=== PATIENT | female | born 1995 | race Caucasian/White ===

== ENCOUNTER 2022-06-03 15:59 | Emergency (ER) | payer MEDICAID, OTHER ==
[~2022-06-03] VITALS: Ht 154.9 cm; Wt 88.9 kg
[2022-06-03 16:26] VITALS: BP 95/60
--- NOTE | 2022-06-03 16:39 | NUR ---
PT AMBULATED TO BED 05 WITH ASSISTANCE.
[2022-06-03] MEDS ORDERED: NACL 0.9% 1,000 ML IV ONE (16:55)
--- NOTE | 2022-06-03 17:16 | NUR ---
Blood work drawn and IV started. Walked blood to lab.
--- NOTE | 2022-06-03 17:26 | NUR ---
26 y/o female bib self with c/o generalized body weakness, nausea, vomiting and rash on right breast x today AM. Patient is . Patient denies being around anyone who is sick. Upon inspection patient's right breast can't visualize any rash. Skin is clean and intact. No swelling or redness. Medical History: Denies NKDA
--- NOTE | 2022-06-03 17:40 | NUR ---
Dr. Walters evaluating patient at bedside.
[2022-06-03] MEDS ORDERED: CLINDAMYCIN 300 MG in DEXTROSE 5% 50 ML IV ONE (17:45)
[2022-06-03] MEDS ORDERED: NACL 0.9% 1,000 ML IV SCH (17:45)
--- NOTE | 2022-06-03 17:45 | NUR ---
Female Sampler Pickup accompanied female patient for Breast Exam.
[2022-06-03 18:03] LABS: BASOPHILS % (AUTO) 0.2 % (0.0-2.0); EOSINOPHILS % (AUTO) 0.2 % (0.0-4.0); HEMATOCRIT 41.4 % (36-48); HEMOGLOBIN 13.8 g/dL (12.0-16.0); LYMPHOCYTES # (AUTO) 1.6 K/uL (2.5-16.5); LYMPHOCYTES % (AUTO) 10.3 % (20.5-51.1); MEAN CORPUSCULAR HEMOGLOBIN 28 pg (27-31); MEAN CORPUSCULAR HGB CONC 33 g/dL (33-37); MEAN CORPUSCULAR VOLUME 83.6 fL (80-94); MONOCYTES # (AUTO) 0.6 K/uL (0.8-1.0); MONOCYTES % (AUTO) 3.9 % (1.7-9.3); NEUTROPHILS # (AUTO) 13.4 K/uL (1.8-7.7); NEUTROPHILS % (AUTO) 85.4 % (42.2-75.2); PLATELET COUNT (AUTO) 302 K/uL (140-450); RED BLOOD CELL COUNT(AUTO) 4.95 MIL/uL (4.20-5.40); RED CELL DISTRIBUTION WIDTH 14.1 % (11.6-13.7); WHITE BLOOD COUNT (AUTO) 15.7 K/uL (4.8-10.8)
[2022-06-03] MEDS ORDERED: CLINDAMYCIN 600 MG in DEXTROSE 5% 50 ML IV SCH (18:05)
--- NOTE | 2022-06-03 18:05 | NUR ---
Lab at bedside.
--- NOTE | 2022-06-03 18:24 | NUR ---
X- Ray at bedside.
[2022-06-03 18:27] LABS: ALBUMIN 3.9 g/dL (3.4-5.0); ANION GAP 14.9 (8-16); CARBON DIOXIDE 23.7 mmol/L (21-32); CREATININE 0.6 mg/dL (0.6-1.3); POTASSIUM 3.6 mmol/L (3.5-5.1); TOTAL BILIRUBIN 0.4 mg/dL (0.0-1.0)
--- NOTE | 2022-06-03 19:07 | NUR ---
Patients axillary temperature is 101.7. Cooling measures implemented. Dr. Walters made aware of elevated temperature.
[2022-06-03 19:08] LABS: APPEARANCE,URINE CLOUDY (CLEAR); BILIRUBIN,URINE NEGATIVE (NEGATIVE); BLOOD, URINE 2+ (NEGATIVE); COLOR,URINE YELLOW (YELLOW); UGLUCOSE NEGATIVE (NEGATIVE)
[2022-06-03 19:09] LABS: LEUKOCYTE ESTERASE ,URINE NEGATIVE (NEGATIVE); NITRITE, URINE NEGATIVE (NEGATIVE); RBC,URINE 0-5 /HPF (0-5); WBC,URINE 0-5 /HPF (0-5)
[2022-06-03] MEDS ORDERED: ACETAMINOPHEN EXTRA STRENGTH 500 MG TAB PO ONE (19:10)
--- NOTE | 2022-06-03 19:27 | NUR ---
Pt report given to ALEJA Dawson. Transfer of care at this time.
[2022-06-03] MEDS ORDERED: CLIN300C52 PO (19:34)
[2022-06-03] MEDS ORDERED: IBUP-2213 PO (19:34)
--- NOTE | 2022-06-03 19:41 | NUR ---
Dr. Walters examining patient.
[2022-06-03 20:00] VITALS: BP 88/51
--- NOTE | 2022-06-03 20:00 | NUR ---
Patient discharged with v/s stable. Written and verbal after care instructions given and explained. Patient alert, oriented and verbalized understanding of instructions. Ambulatory with steady gait. All questions addressed prior to discharge. ID band removed. Patient advised to follow up with PMD. Rx of CLINDAMYCIN AND IBUPROFEN given. Patient educated on indication of medication including possible reaction and side effects. Opportunity to ask questions provided and answered. Addendum: 06/03/22 at 2114 by ISABELLE Patient discharged with v/s stable. Written and verbal after care instructions given and explained. Patient alert, oriented and verbalized understanding of instructions. Ambulatory with steady gait. All questions addressed prior to discharge. ID band removed. Patient advised to follow up with PMD. Rx of CLINDAMYCIN AND IBUPROFEN given. Opportunity to ask questions provided and answered.
== END 2022-06-03 20:00 | disposition home or self-care (01) ==
LOC: MED 15:59
DX: N61.0 Mastitis without abscess (principal); Z20.822 Contact with and (suspected) exposure to COVID-19; Z88.1 Allergy status to other antibiotic agents; Z88.8 Allergy status to other drugs, medicaments and biological substances; Z79.899 Other long term (current) drug therapy; Z98.890 Other specified postprocedural states
CPT/HCPCS: 36415; 71045; 80053; 81001; 81025; 83605; 83880; 85025; 87040; 87086; 87426; 93005; 96361; 96365; 99285; J3490; J7030; J7060; Q0092

== ENCOUNTER 2022-09-16 11:46 | Inpatient (IN) | payer MEDICAID, OTHER ==
[~2022-09-16] VITALS: Ht 154.9 cm; Wt 87.5 kg
[~2022-09-16 11:46] MED LIST: CLIN300C52 PO; IBUP-2213 PO
[2022-09-16 12:03] VITALS: BP 117/76
--- NOTE | 2022-09-16 12:17 | NUR ---
Patient ambulated to bed 8 with steady gait.
[2022-09-16] MEDS ORDERED: ACETAMINOPHEN EXTRA STRENGTH 500 MG TAB PO ONE (12:30)
[2022-09-16] MEDS ORDERED: NACL 0.9% 1,000 ML IV SCH (12:30)
--- NOTE | 2022-09-16 12:40 | NUR ---
27 y/o female bib self with c/o low back pain x yesterday. Patient is 11 weeks . During routine OB appointment, patient was found to have a UTI and is currently on Macrobid. [id number] Denies any fever, chills or SOB. MedicL History: Denies ALLERGY: CEPHALEXIN, VANCOMYCIN
--- NOTE | 2022-09-16 12:54 | NUR ---
DR MCPHERSON AT BEDSIDE EVALUATING PT
[2022-09-16] MEDS ORDERED: NITROFURANTOIN 100 MG CAP PO SCH (13:00)
[2022-09-16 13:31] LABS: BASOPHILS % (AUTO) 0.4 % (0.0-2.0); EOSINOPHILS % (AUTO) 0.3 % (0.0-4.0); HEMATOCRIT 38.3 % (36-48); HEMOGLOBIN 12.8 g/dL (12.0-16.0); LYMPHOCYTES # (AUTO) 1.6 K/uL (2.5-16.5); LYMPHOCYTES % (AUTO) 13.7 % (20.5-51.1); MEAN CORPUSCULAR HEMOGLOBIN 28 pg (27-31); MEAN CORPUSCULAR HGB CONC 34 g/dL (33-37); MEAN CORPUSCULAR VOLUME 84.9 fL (80-94); MONOCYTES # (AUTO) 0.7 K/uL (0.8-1.0); MONOCYTES % (AUTO) 6.1 % (1.7-9.3); NEUTROPHILS # (AUTO) 9.1 K/uL (1.8-7.7); NEUTROPHILS % (AUTO) 79.5 % (42.2-75.2); PLATELET COUNT (AUTO) 226 K/uL (140-450); RED CELL DISTRIBUTION WIDTH 14.3 % (11.6-13.7); WHITE BLOOD COUNT (AUTO) 11.5 K/uL (4.8-10.8)
[2022-09-16 13:48] LABS: ALBUMIN 2.8 g/dL (3.4-5.0); CARBON DIOXIDE 23.3 mmol/L (21-32); CREATININE 0.7 mg/dL (0.6-1.3); POTASSIUM 3.3 mmol/L (3.5-5.1); TOTAL BILIRUBIN 0.3 mg/dL (0.0-1.0)
[2022-09-16 14:42] LABS: BILIRUBIN,URINE NEGATIVE (NEGATIVE); BLOOD, URINE NEGATIVE (NEGATIVE); COLOR,URINE YELLOW (YELLOW); LEUKOCYTE ESTERASE ,URINE TRACE (NEGATIVE); NITRITE, URINE NEGATIVE (NEGATIVE); UGLUCOSE NEGATIVE (NEGATIVE)
[2022-09-16 14:51] LABS: APPEARANCE,URINE SLIGHTLY HAZY (CLEAR)
[2022-09-16 14:52] LABS: RBC,URINE NONE SEEN /HPF (0-5)
[2022-09-16] MEDS ORDERED: diphenhydrAMINE 50 MG/ML VIAL IVP ONE (15:00)
[2022-09-16] MEDS ORDERED: PIPERACILLIN/TAZOBACTAM 3.375 GM in DEXTROSE 5% 50 ML IV ONE (15:00)
[2022-09-16] MEDS ORDERED: POTASSIUM CHLORIDE 10 MEQ TABER PO ONE (15:15)
[2022-09-16] MEDS ORDERED: NACL 0.9% 1,000 ML IV ONE (15:15)
[2022-09-16] MEDS ORDERED: NITR100C7 PO (15:20)
[2022-09-16] MEDS ORDERED: PNV91TAB8 PO (15:20)
--- NOTE | 2022-09-16 15:20 | NUR ---
Med rec complete.
[2022-09-16] MEDS ORDERED: PIPERACILLIN/TAZOBACTAM 3.375 GM VIAL IV ONE (15:45)
--- NOTE | 2022-09-16 16:03 | NUR ---
CALLED DR GARCÍA TO VERIFY ORDER FOR ZOSYN D/T ALLERGY. RECEIVED VERBAL ORDER TO HOLD ALL ANTIBIOTICS AT THIS TIME AND SHE WILL CHANGE THE RX. ALSO INFORMED DR GARCÍA THAT PT IS REQUESTION PAIN MEDICATION, STATED SHE WILL PUT IN ORDERS.
--- NOTE | 2022-09-16 16:51 | NUR ---
Patient will be admitted to care of Dr. Gillespie. Admited to Telemetry. Will go to room 120-a. Belongings list completed. Report to BRENDAN Sheridan.
--- NOTE | 2022-09-16 16:52 | NUR ---
The patient's care was reviewed and supervised by Francie Escamilla RN.
--- NOTE | 2022-09-16 17:00 | NUR ---
PT ARRIVED TO UNIT VIA GURNEY AND WAS ABLE TO AMBULATE TO BEDSIDE. RECEIVED BEDSIDE REPORT FROM ED ALEJA PARK. PT IS A/OX4, BREATHING EVEN, REGULAR, AND UNLABORED ON ROOM AIR. PT SKIN INTACT, CONTINENT OF THE BOWEL AND BLADDER. PT IS CURRENTLY 11 WEEKS , [id number] AND CURRENTLY . PT REPORTED CHILLS, AND INCREASING FLANK PAIN ON RIGHT SIDE. PT IN STABLE CONDITION.
[2022-09-16] MEDS ORDERED: PIPERACILLIN/TAZOBACTAM 3.375 GM in DEXTROSE 5% 50 ML IV SCH (18:00)
[2022-09-16] MEDS: ACETAMINOPHEN EXTRA STRENGTH 500 MG TAB PO PRN (18:19)
--- NOTE | 2022-09-16 18:20 | NUR ---
ADMINISTERED PRN TYLENOL FOR FLANK PAIN 07/01. PROVIDED HEAT PACK FOR PT. AT THE BEDSIDE.
--- NOTE | 2022-09-16 19:20 | NUR ---
DR. TYREE ANGUIANO ROUND TO THE PT . Addendum: 09/16/22 at 1954 by Noa Mcmanus RN THE 1919 TIME IN MY NURSE'S NOTES IS AN TIME ERROR ENTRY , INSTEAD OF 0 - JULIA
--- NOTE | 2022-09-16 19:27 | NUR ---
ENDORSED PT TO NIGHTSNYFT NURSE KOBE FOR CONTINUITY OF CARE. PT IN STABLE CONDITION.
--- NOTE | 2022-09-16 19:27 | NUR ---
RECIEVED BEDSIDE ENDORSEMENT - PT IS AAOX4 , DENIES PAIN AT THIS TIME , PER AM RN SHE JUST GAVE TYLENOL FOR PAIN - WILL CONT. TO MONITOR , CALL LIGHT WITHIN REACH , WILL CONT. TO MONITOR .
[2022-09-16] MEDS ORDERED: GENTAMICIN PER PHARMACY MC PRN (19:40)
[2022-09-16 20:00] VITALS: BP 122/76
--- NOTE | 2022-09-16 20:26 | NUR ---
INFORMED DR Franki CLEMENTS ONLY 400MG AVAILABLE GENTAMICIN AT THIS TIME , PER DR. CLEMENTS GIVE THAT 400MG TONIGHT , THEN 440MG FOR THE NEXT DOSE - CHARGE NURSE LAZ ASHLEY . WILL ENDORSE . Addendum: 09/16/22 at 2058 by Noa Mcmanus RN THE 2025 TIME IN MY NURSE'S NOTE IS TIME ERROR ENTRY , INSTEAD OF 2055 - JULIA.
--- NOTE | 2022-09-16 20:37 | NUR ---
NO AVAILABLE GENTAMICIN IN BOTH [facility] - INFORMED IMPLEMENTATION LEAD - WAITING GIVE IT TO ME .
[2022-09-16] MEDS ORDERED: GENTAMICIN 80 MG/2 ML VIAL ONE (20:41)
[2022-09-16] MEDS ORDERED: GENTAMICIN IV SCH (21:00)
[2022-09-16] MEDS ORDERED: DEXTROSE 5% IV SCH (21:00)
--- NOTE | 2022-09-16 21:25 | NUR ---
ONLY 400MG GENTAMICIN AVAILABLE - INFORMED DR. CLEMENTS - PER DR. CLEMENTS GIVE THAT 400MG TONIGHT AND GIVE 440MG FOR THE NEXT DOSE - CHARGE NURSE MJ AWARE . WILL ADMINISTER THE GENTAMICIN .
--- NOTE | 2022-09-16 21:28 | NUR ---
GENTAMICIN 400MG TIV ADMINISTER - WOF FOR ANY UNTOWARD REACTIONS , CALL LIGHT WITHIN REACH .
--- NOTE | 2022-09-16 22:28 | NUR ---
GENTAMICIN COMPLETED , NO UNTOWARD S/SX NOTED AT THIS TIME , WILL CONT. TO MONITOR.
--- NOTE | 2022-09-16 23:25 | NUR ---
HIT THE CALL LIGHT SHE WANTS TO GO TO REST ROOM .
--- NOTE | 2022-09-16 23:29 | NUR ---
BACK TO BED FROM REST ROOM , C/O PAIN - I REVEIWED THE EMAR THERE IS TYLENOL RX FOR PAIN BUT JUST 5HRS AGO SINCE SHE GOT IT - I EXPLAIN TO HER THE FREQ IS Q 6HRS - IF SHE CAN'T REALLY BEARABLE THE PAIN I WILL REFER HER TO THE DOCTOR - SHE SAID VERY BEARABLE AT THIS TIME SHE SAID NO NEED TO REFER TO MD - SHE CAN WAIT THE DUE TIME OF TYLENOL - FOR CLOSELY WATCH . DENIES ABDL . CRAMPS , BUT SHE COMPLAIN LEG CRAMPS - PT HAS LOW SERUM K , WILL CONT. TO MONITOR . =
[2022-09-17] VITALS: BP 110/64
--- NOTE | 2022-09-17 00:10 | NUR ---
RE VISIT PT - C/O PAIN SHE SAID 3/10 PAIN LEVEL - WILL MEDICATE .
[2022-09-17] MEDS: ACETAMINOPHEN EXTRA STRENGTH 500 MG TAB PO PRN ×2 (00:25→16:33)
[2022-09-17 04:00] VITALS: BP 108/62
[2022-09-17 05:43] LABS: BASOPHILS # (AUTO) 0.1 K/uL (0.00-0.22); BASOPHILS % (AUTO) 0.5 % (0.0-2.0); EOSINOPHILS % (AUTO) 0.2 % (0.0-4.0); HEMATOCRIT 36.4 % (36-48); HEMOGLOBIN 12.3 g/dL (12.0-16.0); LYMPHOCYTES # (AUTO) 1.9 K/uL (2.5-16.5); LYMPHOCYTES % (AUTO) 14.7 % (20.5-51.1); MEAN CORPUSCULAR HEMOGLOBIN 28 pg (27-31); MEAN CORPUSCULAR HGB CONC 34 g/dL (33-37); MEAN CORPUSCULAR VOLUME 84.3 fL (80-94); MONOCYTES # (AUTO) 0.9 K/uL (0.8-1.0); MONOCYTES % (AUTO) 6.7 % (1.7-9.3); NEUTROPHILS # (AUTO) 10.1 K/uL (1.8-7.7); NEUTROPHILS % (AUTO) 77.9 % (42.2-75.2); PLATELET COUNT (AUTO) 228 K/uL (140-450); RED BLOOD CELL COUNT(AUTO) 4.32 MIL/uL (4.20-5.40)
--- NOTE | 2022-09-17 05:57 | NUR ---
TRY TO BORROW DOOPLER TO L &D - PER L & D NURSE THE 11 WEEKS PREG. IS NOT YET AUDIBLE - BUT I RESEARCH BY GOOGLE THE HEART BEAT AUDIBLE BY 10 TO 11 WEEKS .
[2022-09-17 06:02] LABS: ANION GAP 14.4 (8-16); CARBON DIOXIDE 20.3 mmol/L (21-32); CREATININE 0.5 mg/dL (0.6-1.3); POTASSIUM 3.7 mmol/L (3.5-5.1)
--- NOTE | 2022-09-17 06:07 | NUR ---
PER COMMAND BY CHARGE NURSE LET SOMEONE FROM [facility] COME HERE AND GET THE HEART TONE OF THE PT .
--- NOTE | 2022-09-17 06:08 | NUR ---
ASK STAFF NURSE FROM L& D - SHE SAID NO ONE WILL COME HERE BEC. THEY HAVE POST PTS. - WILL GO TO ER TO BORROW ONE DOPPLER .
[2022-09-17] MEDS ORDERED: DOPPLER MC ONE (06:12)
--- NOTE | 2022-09-17 06:41 | NUR ---
HEAR RATE 148 BEAT PER MIN TAKEN BY LAURA JOHNSON . - INFORM CHARGE NURSE MJ . WILL CONT. TO MONITOR.
--- NOTE | 2022-09-17 07:40 | NUR ---
ENDORSED PT STABLE .
--- NOTE | 2022-09-17 07:40 | NUR ---
RECEIVED REPORT FROM NIGHTSHIFT NURSE KOBE FOR CONTINUITY OF CARE. PT IS CURRENTLY SLEEPING, A/OX4. BREATHING EVEN, REGULAR, AND UNLABORED ON ROOM AIR. PT SKIN INTACT, CONTINENT OF THE BOWEL AND BLADDER, AND ABLE TO AMBULATE INDEPENDENTLY. IV SITE CLEAN, DRY, AND PATENT SALINE LOCKED. NO SIGNS OF PAIN OR DISTRESS NOTED AT THIS TIME.
[2022-09-17 08:00] VITALS: BP 103/58
--- NOTE | 2022-09-17 09:00 | NUR ---
PT VISUALLY ASSESSED, DENIES PAIN AT THIS TIME.
--- NOTE | 2022-09-17 10:20 | NUR ---
PATIENT HAS BEEN SCREENED AND CATEGORIZED LOW NUTRITION RISK. PATIENT WILL BE SEEN WITHIN 7 DAYS OF ADMISSION. 09/23/22 REVIEWED BY MAGALYS BRUNER [address]
--- NOTE | 2022-09-17 11:00 | NUR ---
PT VISUALLY ASSESSED, DENIES PAIN AT THIS TIME.
--- NOTE | 2022-09-17 12:07 | NUR ---
DC PLANNING SW MET WITH PT AT BEDSIDE TO COMPLETE ASSESSMENT. PATIENT REPORTS RESIDING IN A SINGLE STORY HOME WITH HER FAMILY. PATIENT IDENTIFIED HANNAH RICHARDS, PARTNER, EMERGENCY CONTACT AND MDM. PATIENT DENIES HAVING AD IN PLACE AND DECLINED AD OFFERED BY SW. PATIENT REPORTS MEETING WITH PCP, GISSELL SALAZAR, NEEDED, LAST VISIT; 2 YRS AGO. PATIENT REPORTS MEETING WITH OB-MARKETING DATABASE COORDINATOR DR. BUNDY EVERY 2-3 WEEKS, PATIENT IS CURRENTLY 11 WEEKS , THIS IS PATIENTS FOURTH . PATIENT REPORTS NOT CURRENTLY TAKING MEDIATION AT THIS TIME AND DENIES BARRIERS IN ACCESS TO MEDICATION, IF REQUIRED. PATIENT REPORTS RECEIVING MEDICATIONS AT [facility] ON [address] IN [place], WHEN NEEDED. PATIENT REPORTS BEING INDEPENDENT IN ALL ACTIVITIES AND DENIES USE OF DME.PATIENT COMPLETES ALL ADL'S INDEPENDENTLY. PATIENT DENIES HX OF MH/SUBSTANCE USE. PATIENT REPORTS ADEQUATE ACCESS TO FOOD. PATIENT DENIES HX OF HH, DIABETES, AND DIALYSIS TX. PATIENT REPORTS DC PLAN IS TO RETURN HOME WITH HER OR MOTHER PROVIDING TRANSPORTATION, WHEN MEDICALLY CLEARED. SW INQUIRED ON RESOURCES NEED, PATIENT DECLINED AT THIS TIME.
--- NOTE | 2022-09-17 12:48 | NUR ---
LATE ENTRY- IV NORMAL SALINE DISCONTINUED AT 1651.
--- NOTE | 2022-09-17 13:00 | NUR ---
PT VISUALLY ASSESSED, CURRENTLY SLEEPING. NO SIGNS OF PAIN OR DISTRESS NOTED AT THIS TIME.
--- NOTE | 2022-09-17 15:00 | NUR ---
PT VISUALLY ASSESSED, NO SIGNS OF PAIN OR DISTRESS NOTED AT THIS TIME.
[2022-09-17 16:00] VITALS: BP 100/63
--- NOTE | 2022-09-17 17:37 | NUR ---
PT STATED SHE WAS STILL IN PAIN 03/31, PRN TYLENOL RECENTLY GIVEN BY FLEX CARDONA. NO SIGNS OF DISTRESS NOTED AT THIS TIME.
--- NOTE | 2022-09-17 18:50 | NUR ---
PT COMPLAINED OF INCREASED PAIN ON RIGHT FLANK, PRN TYLENOL LAST GIVEN AT 1630 BY FLEX CARDONA. NOTIFIED DR. ASHRAF AND DR. BUNDY FOR PRN RECOMMENDATIONS. AWAITING CALLBACK.
--- NOTE | 2022-09-17 19:34 | NUR ---
ENDORSED TO NIGHTSCTFT NURSE LILLIAM FOR CONTINUITY OF CARE.
--- NOTE | 2022-09-17 19:38 | NUR ---
GET THE REPORT FROM MORNING NURSE CODY,PATIENT IS LYING ON BED, PATIENT IS ALERT ORIENTED X4, ALL FALL PRECAUTION MEASURE ARE IN PLACE, CALL LIGHT IS WITHIN THE REACH, WILL CONTINUE TO MONITOR PATIENT.
[2022-09-17 20:00] VITALS: BP 123/80
[2022-09-17] MEDS ORDERED: MORPHINE SULFATE 4 MG/ML SYR IVP SCH (20:00)
[2022-09-17] MEDS: GENTAMICIN 100 MG in DEXTROSE 5% 100 ML IV SCH (21:32)
--- NOTE | 2022-09-17 21:36 | NUR ---
PATIENT IS LYING ON BED, NO ANY COMPLAIN OF PAIN OR SHORTNESS OF BREATH AT THIS TIME, VITAL SIGN IS WITHIN THE NORMAL RANGE, ALL SCHEDULE MEDICATION IS GIVEN PER DOCTOR ORDER, CALL LIGHT IS WITHIN THE REACH, WILL CONTINUE TO MONITOR PATIENT.
[2022-09-18] VITALS: BP 107/59
--- NOTE | 2022-09-18 00:17 | NUR ---
PATIENT IS LYING ON BED, NO ANY COMPLAIN OF PAIN OR SHORTNESS OF BREATH AT THIS TIME, VITAL SIGN IS WITHIN THE NORMAL RANGE, CALL LIGHT IS WITHIN THE NORMAL RANGE, WILL CONTINUE TO MONITOR PATIENT.
[2022-09-18 04:00] VITALS: BP 97/60
--- NOTE | 2022-09-18 04:31 | NUR ---
PATIENT IS LYING ON BED, NO ANY COMPLAIN OF PAIN OR SHORTNESS OF BREATH AT THIS TIME, VITAL SIGN IS WITHIN THE NORMAL RANGE,PATIENT ASK FOR MANUAL BAREST PUMP, PROVIDED FROM LABOR [facility] DELIVERY, ALL OTHER SCHEDULE MEDICATION IS GIVEN PER DOCTOR ORDER, CALL LIGHT IS WITHIN THE NORMAL RANGE, WILL CONTINUE TO MONITOR PATIENT.
[2022-09-18] MEDS: GENTAMICIN 100 MG in DEXTROSE 5% 100 ML IV SCH ×3 (04:45→20:01)
[2022-09-18] MEDS ORDERED: GENTAMICIN 100 MG in DEXTROSE 5% 100 ML IV SCH (05:00)
[2022-09-18 05:50] LABS: BASOPHILS % (AUTO) 0.3 % (0.0-2.0); EOSINOPHILS # (AUTO) 0.1 K/uL (0-0.4); EOSINOPHILS % (AUTO) 0.9 % (0.0-4.0); HEMATOCRIT 35.9 % (36-48); HEMOGLOBIN 12.2 g/dL (12.0-16.0); LYMPHOCYTES # (AUTO) 2.8 K/uL (2.5-16.5); LYMPHOCYTES % (AUTO) 25.3 % (20.5-51.1); MEAN CORPUSCULAR HEMOGLOBIN 29 pg (27-31); MEAN CORPUSCULAR HGB CONC 34 g/dL (33-37); MEAN CORPUSCULAR VOLUME 84.5 fL (80-94); MONOCYTES # (AUTO) 0.8 K/uL (0.8-1.0); MONOCYTES % (AUTO) 7.1 % (1.7-9.3); NEUTROPHILS # (AUTO) 7.2 K/uL (1.8-7.7); NEUTROPHILS % (AUTO) 66.4 % (42.2-75.2); PLATELET COUNT (AUTO) 236 K/uL (140-450); RED BLOOD CELL COUNT(AUTO) 4.25 MIL/uL (4.20-5.40); WHITE BLOOD COUNT (AUTO) 10.9 K/uL (4.8-10.8)
[2022-09-18 06:42] LABS: ANION GAP 14.8 (8-16); CARBON DIOXIDE 20.6 mmol/L (21-32); CREATININE 0.4 mg/dL (0.6-1.3); POTASSIUM 3.4 mmol/L (3.5-5.1)
--- NOTE | 2022-09-18 07:39 | NUR ---
GAVE THE REPORT TO MORNING NURSE ADZE FOR CONTINUOS OF CARE,PATIENT IS STABLE.
[2022-09-18 08:00] VITALS: BP 117/71
[2022-09-18] MEDS ORDERED: POTASSIUM CHLORIDE 10 MEQ TABER PO SCH (13:00)
[2022-09-18 16:00] VITALS: BP 93/58
--- NOTE | 2022-09-18 19:37 | NUR ---
GET THE REPORT FROM MORNING NURSE ADZE,PATIENT IS LYING ON BED, PATIENT IS ALERT ORIENTED X4, ALL FALL PRECAUTION MEASURE ARE IN PLACE, CALL LIGHT IS WITHIN THE REACH, WILL CONTINUE TO MONITOR PATIENT.
[2022-09-18 20:00] VITALS: BP 110/61
--- NOTE | 2022-09-18 21:55 | NUR ---
LABORATORY CALLED AND REPORTED GENTAMICIN THROUGH 8.6, NOTICE BLOOD WAS DROWN WHILE MEDICATION IS RUNNING, SO CALL PHARMACY AND FROM PHARMACY [facility] SAID REPEAT GENTAMICIN THROUGH AT 0430, WILL FOLLOW PHARMACY ORDER, AND WILL CONTINUE TO MONITOR PATIENT.
[2022-09-19] VITALS: BP 114/63
[2022-09-19 04:00] VITALS: BP 98/60
--- NOTE | 2022-09-19 04:18 | NUR ---
VITAL SIGN IS WITHIN THE NORMAL RANGE,NO ANY COMPLAIN OF PAIN OR SHORTNESS OF BREATH AT THIS TIME, PATIENT IS LYING ON BED, CALL LIGHT IS WITHIN THE REACH, WILL CONTINUE TO MONITOR PATIENT.
[2022-09-19 04:54] LABS: BASOPHILS % (AUTO) 0.3 % (0.0-2.0); EOSINOPHILS # (AUTO) 0.1 K/uL (0-0.4); EOSINOPHILS % (AUTO) 1.3 % (0.0-4.0); HEMATOCRIT 36.6 % (36-48); HEMOGLOBIN 12.4 g/dL (12.0-16.0); LYMPHOCYTES # (AUTO) 3.3 K/uL (2.5-16.5); LYMPHOCYTES % (AUTO) 30.5 % (20.5-51.1); MEAN CORPUSCULAR HEMOGLOBIN 28 pg (27-31); MEAN CORPUSCULAR HGB CONC 34 g/dL (33-37); MEAN CORPUSCULAR VOLUME 83.6 fL (80-94); MONOCYTES # (AUTO) 0.6 K/uL (0.8-1.0); MONOCYTES % (AUTO) 5.5 % (1.7-9.3); NEUTROPHILS # (AUTO) 6.7 K/uL (1.8-7.7); NEUTROPHILS % (AUTO) 62.4 % (42.2-75.2); PLATELET COUNT (AUTO) 296 K/uL (140-450); RED BLOOD CELL COUNT(AUTO) 4.38 MIL/uL (4.20-5.40); RED CELL DISTRIBUTION WIDTH 14.3 % (11.6-13.7); WHITE BLOOD COUNT (AUTO) 10.7 K/uL (4.8-10.8)
[2022-09-19 05:02] LABS: ANION GAP 14.1 (8-16); CREATININE 0.4 mg/dL (0.6-1.3); POTASSIUM 4.1 mmol/L (3.5-5.1)
[2022-09-19] MEDS: GENTAMICIN 100 MG in DEXTROSE 5% 100 ML IV SCH (06:00)
--- NOTE | 2022-09-19 06:00 | NUR ---
GENTAMICIN LAVAL IS < 0.2, , GAVE GENTAMICIN PER DOCTOR ORDER, CALL LIGHT IS WITHIN THE REACH, WILL CONTINUE TO MONITOR PATIENT.
--- NOTE | 2022-09-19 07:26 | NUR ---
GAVE THE REPORT TO MORNING NURSE ADZE FOR CONTINUOS OF CARE, PATIENT IS STABLE.
[2022-09-19 08:00] VITALS: BP 99/63
[2022-09-19] MEDS ORDERED: POTASSIUM CHLORIDE 10 MEQ TABER PO SCH (09:00)
[2022-09-19] MEDS ORDERED: NITR100C7 PO (11:02)
[2022-09-19 12:00] VITALS: BP 99/63
[2022-09-19] MEDS ORDERED: GENTAMICIN 130 MG in DEXTROSE 5% 100 ML IV SCH (13:00)
[2022-09-19 13:44] VITALS: BP 99/63
--- NOTE | 2022-09-19 14:20 | NUR ---
PATIENT DISCHARGE ORDER CANCELLED BY DR. KERN. PER DR. CLEMENTS RECOMMENDATION FOR PATIENT TO COMPLETE THE GENTAMYCIN THERAPY. PATIENT DOES NOT WANT TO STAY AND WILL VOLUNTARILY LEAVE AMA. RISKS AND BENEFITS WAS EXPLAINED TO THE PATIENT BY MD. PATIENT STILL WANTS TO LEAVE AMA. ALSO EXPLAINED TO THE PATIENT THE IMPORTANCE TO FOLLOW UP WITH HER [facility] PRISCILA. EXPLAINED TO THE PATIENT PER DR. KERN THE MACROBID PRESCRIPTION THAT WAS RECOMMENDED BY OB[facility] W[facility] MIGHT NOT WORK AND SHE CAN TAKE IT AT HER OWN RISKS. PER PATIENT STATES " I WILL NOT GET THE MACROBID PRESCRIPTION I WILL WAIT UNTIL I SEE MY OB[facility] ON WEDNESDAY" PATIENT SIGNED AMA FORM AND LEFT WITH .
== END 2022-09-19 14:30 | disposition left against medical advice (07) | DRG 566 ==
LOC: MED 11:46 → MTU 15:15
PROVIDERS: ADMIT Family Medicine; ATTEND Family Medicine
DX: O23.01 Infections of kidney in pregnancy, first trimester (principal); E44.0 Moderate protein-calorie malnutrition; O98.811 Other maternal infectious and parasitic diseases complicating pregnancy, first trimester; E83.51 Hypocalcemia; E87.1 Hypo-osmolality and hyponatremia; E86.0 Dehydration; N10 Acute pyelonephritis; Z88.1 Allergy status to other antibiotic agents; Z20.822 Contact with and (suspected) exposure to COVID-19; Z87.442 Personal history of urinary calculi; Z3A.10 10 weeks gestation of pregnancy; Z53.29 Procedure and treatment not carried out because of patient's decision for other reasons
CPT/HCPCS: 36415; 76705; 76770; 76801; 80048; 80053; 80170; 81001; 82553; 83605; 83690; 83735; 84702; 85025; 85610; 85730; 86900; 86901; 87040; 87081; 87086; 96360; 96361; 99285; J1200; J1580; J2543; J7030; J7060; Q0092

== ENCOUNTER 2023-01-29 17:15 | Observation (INO) | payer MEDICAID ==
[~2023-01-29] VITALS: Ht 154.9 cm; Wt 91.2 kg
[~2023-01-29 17:15] MED LIST changes: -CLIN300C52 PO; -IBUP-2213 PO; +NITR100C7 PO; +PNV91TAB8 PO
[2023-01-29] MEDS ORDERED: TERBUTALINE 1 MG/ML VIAL SUBQ SCH (18:05)
[2023-01-29] MEDS ORDERED: DEXT 5% / LACT RING 1,000 ML IV SCH (18:05)
[2023-01-29] MEDS ORDERED: ONDANSETRON 4 MG TAB PO PRN (18:05)
[2023-01-29] MEDS ORDERED: MORPHINE SULFATE 10 MG/ML VIAL IVP PRN (18:15)
[2023-01-29 18:47] LABS: BASOPHILS # (AUTO) 0.1 K/uL (0.00-0.22); BASOPHILS % (AUTO) 0.4 % (0.0-2.0); EOSINOPHILS % (AUTO) 0.3 % (0.0-4.0); HEMOGLOBIN 12.4 g/dL (12.0-16.0); LYMPHOCYTES # (AUTO) 1.4 K/uL (2.5-16.5); MEAN CORPUSCULAR HEMOGLOBIN 27 pg (27-31); MEAN CORPUSCULAR HGB CONC 34 g/dL (33-37); MONOCYTES # (AUTO) 0.5 K/uL (0.8-1.0); NEUTROPHILS # (AUTO) 13.1 K/uL (1.8-7.7); NEUTROPHILS % (AUTO) 87.3 % (42.2-75.2); PLATELET COUNT (AUTO) 278 K/uL (140-450); RED BLOOD CELL COUNT(AUTO) 4.56 MIL/uL (4.20-5.40); RED CELL DISTRIBUTION WIDTH 14.7 % (11.6-13.7)
[2023-01-29] MEDS ORDERED: ONDANSETRON 4 MG/2 ML VIAL IVP PRN (18:50)
[2023-01-29 19:13] LABS: ALBUMIN 3.1 g/dL (3.4-5.0); ANION GAP 13.2 (8-16); CARBON DIOXIDE 24.7 mmol/L (21-32); CREATININE 0.5 mg/dL (0.6-1.3); POTASSIUM 3.9 mmol/L (3.5-5.1); TOTAL BILIRUBIN 0.1 mg/dL (0.0-1.0)
[2023-01-29 19:52] VITALS: BP 129/76
== END 2023-01-29 21:35 | disposition home or self-care (01) ==
LOC: MLD 17:15
PROVIDERS: ADMIT Obstetrics & Gynecology; ATTEND Obstetrics & Gynecology
DX: O26.893 Other specified pregnancy related conditions, third trimester (principal); R10.9 Unspecified abdominal pain; O21.2 Late vomiting of pregnancy; Z3A.29 29 weeks gestation of pregnancy
CPT/HCPCS: 36415; 59025; 80053; 85025; 96361; 96372; 96374; 96375; G0378; J2270; J2405; J3105; Q0162

== ENCOUNTER 2023-08-25 06:40 | Day surgery (SDC) | payer MEDICAID ==
[~2023-08-25] VITALS: Ht 154.9 cm; Wt 91.2 kg
[2023-08-25] MEDS ORDERED: LIDOCAINE/EPI MPF 1%1:200000 30 ML VIAL INJ ONE (07:45)
[2023-08-25] MEDS ORDERED: BUPIVACAINE-MPF 0.25% 30 ML VIAL INJ ONE (07:46)
[2023-08-25] MEDS ORDERED: MIDAZOLAM 2 MG/2 ML VIAL ONE (08:23)
[2023-08-25] MEDS ORDERED: fentaNYL citrate 0.05 MG/ML VIAL ONE (08:24)
[2023-08-25] MEDS ORDERED: SUGAMMADEX SODIUM 200 MG/2 ML VIAL IV ONE (08:40)
[2023-08-25] MEDS ORDERED: ONDANSETRON 4 MG/2 ML VIAL IVP PRN (09:50)
[2023-08-25] MEDS ORDERED: HYDROmorphone 1 MG/ML AMP IVP PRN (09:50)
== END 2023-08-25 11:15 | disposition home or self-care (01) ==
LOC: MDS 06:40 → MMU 06:46 → MDS 11:15
PROVIDERS: ATTEND Obstetrics & Gynecology
DX: Z30.2 Encounter for sterilization (principal); K21.9 Gastro-esophageal reflux disease without esophagitis; Z79.899 Other long term (current) drug therapy
CPT/HCPCS: 58670; 82374; J2250; J3010; J3490; J7120; J2001